=== PATIENT | male | born 1940 | race Caucasian/White ===

== ENCOUNTER 2019-04-15 13:45 | Emergency (ER) | payer MEDICARE ==
[2019-04-15] MEDS ORDERED: Sodium Chloride 0.9% 10 ML Syringe FLUSH PRN (14:29)
[2019-04-15] MEDS ORDERED: Lactated Ringers 1,000 ML IV SCH (14:30)
--- NOTE | 2019-04-15 14:34 | EDM.PDOC ---
ED HPI GENERAL MEDICAL PROBLEM - General Chief Complaint: Head Injury Stated Complaint: FALL VIA NORTH Time Seen by Provider: 04/15/19 14:24 Source of Information: Reports: Patient, RN Notes Reviewed History Limitations: Reports: No Limitations - History of Present Illness INITIAL COMMENTS - FREE TEXT/NARRATIVE: 78-year-old gentleman presents emergency department today following a fall at home with unknown period of time on the floor also believes this happened around 9:30 last night does have a history of alcohol use called the ambulance this afternoon when he could not get up without assistance. 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 - Related Data Allergies Allergy/AdvReac Type Severity Reaction Status Date / Time metronidazole [From Flagyl] Allergy Intermediate Hives Verified 12/17/14 08:50 Metronidazole HCl Allergy Intermediate Hives Verified 12/17/14 08:50 [From Flagyl] Home Meds: Home Meds Albuterol [Proair HFA] 2 inh INH Q4H PRN 10/01/13 [History] Propranolol [Inderal] 40 mg PO Q8H 10/01/13 [History] Albuterol/Ipratropium [DuoNeb 3.0-0.5 MG/3 ML] 1 ampule IH QID 06/06/14 [History ] Loperamide [Imodium] 2 mg PO DAILY PRN 06/06/14 [History] Loratadine [Claritin] 10 mg PO DAILY 06/06/14 [History] Multivitamin [Multi-Vitamin Daily] 1 tab PO DAILY 06/06/14 [History] Theophylline [Theophylline Anhydrous] 300 mg PO BID 06/06/14 [History] amLODIPine Besylate [Amlodipine Besylate] 5 mg PO DAILY 06/06/14 [History] Finasteride 5 mg PO DAILY 04/15/19 [History] Oxybutynin 5 mg PO DAILY 04/15/19 [History] Tamsulosin [Flomax] 0.4 mg PO DAILY 04/15/19 [History] Past Medical History Cardiovascular History: Reports: Hypertension Respiratory History: Reports: COPD Gastrointestinal History: Reports: Jaundice Psychiatric History: Reports: Addiction - Infectious Disease History Infectious Disease History: Reports: Chicken Pox, Measles, Mumps - Past Surgical History GI Surgical History: Reports: Cholecystectomy Social & Family History - Tobacco Use Smoking Status *Q: Current Every Day Smoker Years of Tobacco use: 60 Packs/Tins Daily: 1 - Caffeine Use Caffeine Use: Reports: Coffee - Alcohol Use Days Per Week of Alcohol Use: 7 Number of Drinks Per Day: 6 Total Drinks Per Week: 42 Date of Last Drink: 04/14/19 Time of Last Drink: 20:00 - Recreational Drug Use Recreational Drug Use: No ED ROS GENERAL - Review of Systems Review Of Systems: See Below Constitutional: Reports: Weakness, Fatigue HEENT: Reports: No Symptoms Respiratory: Reports: No Symptoms Cardiovascular: Reports: No Symptoms GI/Abdominal: Reports: No Symptoms : Reports: No Symptoms Musculoskeletal: Reports: No Symptoms Skin: Reports: Wound Neurological: Reports: Headache Psychiatric: Reports: No Symptoms ED EXAM, HEAD INJURY - Physical Exam Exam: See Below Text/Narrative:: General: Male, not in any distress, alert and oriented x3 HEENT: head is large laceration is appreciated above the right eyebrow also multiple lacerations on the scalp normocephalic, eyes pupils equal round reactive to light, sclera clear no conjunctivitis appreciated. Ears tympanic membranes clear and sanford landmarks and light reflex are present bilaterally canals are clear. Nose no septal deviation, nares are clear, no blood present. Mouth mucosa is dry and pink no erythema or exudate noted in soft palate, tongue is midline uvula is midline, dentition is intact. Neck: Supple no thyromegaly no tracheal deviation. Nodes: Cervical nodes subclavicular nodes nontender no palpable lymphadenopathy noted. NO posterior midline C-spine tenderness NO evidence of intoxication GCS > 14 No focal neurological deficit Positive for distracting injury Lungs: clear to auscultation bilaterally with symmetrical respirations, no adventitious noise appreciated. CV: Regular rate and rhythm S1 and S2 appreciated no murmurs rubs or gallops noted. Abdomen: Soft, nontender, no palpable masses or organomegaly appreciated, no distention no guarding bowel sounds are present, Neuro: GCS 15 Skin: Warm and dry, intact Extremities: No lower extremity edema appreciated, pedal pulse is +2. ED LACERATION/WOUND & NYDIA PROC - Laceration/Wound Repair Face Lac/wound length in cm: 6 Appearance: Superficial, Subcutaneous, Muscle, Irregular, Clean Distal NVT: Neuro & Vascular Intact, No Tendon Injury Anesthetic Type: Local Local Anesthesia - Lidocaine (Xylocaine): 1% with EPI Local Anesthetic Volume: 5cc Skin Prep: Saline Saline irrigation (cc's): 120 Exploration/Debridement/Repair: Wound Explored, In a Bloodless Field, Explored to Base Closed with: Sutures Suture Size: 5-0 # of Sutures: 1 Suture Type: Running Suture Size: 5-0 # of Sutures: 4 Repaired with: Vicryl Sterile Dressing Applied: Nurse Tetanus Status Addressed: Yes (2013) Complications: No Hand Lac/wound length in cm: 3 Appearance: Superficial, Clean Distal NVT: Neuro & Vascular Intact, No Tendon Injury Anesthetic Type: Local Local Anesthesia - Lidocaine (Xylocaine): 1% with EPI Local Anesthetic Volume: 1cc Skin Prep: Saline Saline irrigation (cc's): 60 Exploration/Debridement/Repair: Wound Explored, In a Bloodless Field, Explored to Base Closed with: Farzaneh # of Sutures: 5 Sterile Dressing Applied: Nurse Tetanus Status Addressed: Yes Complications: No Course - Vital Signs Last Recorded V/S: Last Vital Signs Temp 92.5 F L 04/15/19 14:08 Pulse 92 04/15/19 18:24 Resp 20 04/15/19 18:24 BP 127/66 04/15/19 18:24 Pulse Ox 92 L 04/15/19 18:24 - Orders/Labs/Meds Orders: Active Orders 24 hr Category Date Time Status Peripheral IV Care [RC] . DIRECTED Care 04/15/19 14:30 Active Vital Signs [RC] Q1H Care 04/15/19 18:26 Ordered ABG [BLOOD GAS ARTERIAL] [BG] Stat Lab 04/15/19 18:19 Ordered CULTURE BLOOD [BC] Urgent Lab 04/15/19 18:26 Ordered CULTURE BLOOD [BC] Urgent Lab 04/15/19 18:26 Ordered DRUG SCREEN, URINE [URCHEM] Stat Lab 04/15/19 14:29 Ordered THEOPHYLLINE [CHEM] Stat Lab 04/15/19 18:22 Ordered UA W/MICROSCOPIC [URIN] Stat Lab 04/15/19 14:29 Ordered Lactated Ringers [Ringers, Lactated] 1,000 ml Med 04/15/19 14:30 Active IV ASDIRECTED Piperacillin/Tazobactam [Zosyn] 4.5 gm Med 04/15/19 18:25 Ordered Sodium Chloride 0.9% [Normal Saline] 100 ml IV ONETIME Sodium Chloride 0.9% [Normal Saline] 1,000 ml Med 04/15/19 16:30 Active IV ASDIRECTED Sodium Chloride 0.9% [Normal Saline] 1,000 ml Med 04/15/19 18:15 Ordered IV ASDIRECTED Sodium Chloride 0.9% [Saline Flush] Med 04/15/19 14:29 Active 10 ml FLUSH ASDIRECTED PRN Blood Culture x2 Reflex Set [OM.PC] Urgent Oth 04/15/19 18:26 Ordered Peripheral IV Insertion Adult [OM.PC] Urgent Oth 04/15/19 14:29 Ordered Medication Orders Lactated Ringer's (Ringers, Lactated) 1,000 mls @ 999 mls/hr IV ASDIRECTED JUDY Last Admin: 04/15/19 16:13 Dose: 999 mls/hr Sodium Chloride (Normal Saline) 1,000 mls @ 999 mls/hr IV ASDIRECTED JUDY Last Admin: 04/15/19 16:32 Dose: 999 mls/hr Sodium Chloride (Normal Saline) 1,000 mls @ 999 mls/hr IV ASDIRECTED JUDY Last Admin: 04/15/19 18:23 Dose: 999 mls/hr Piperacillin Sod/Tazobactam (Sod 4.5 gm/ Sodium Chloride) 100 mls @ 100 mls/hr IV ONETIME ONE Stop: 04/15/19 19:24 Sodium Chloride (Saline Flush) 10 ml FLUSH ASDIRECTED PRN PRN Reason: Keep Vein Open Labs: Laboratory Tests 04/15/19 04/15/19 04/15/19 Range/Units 14:05 14:05 14:05 WBC 15.5 H (4.5-11.0) K/uL RBC 2.24 L (4.30-5.90) M/uL Hgb 8.6 L D (12.0-15.0) g/dL Hct 25.0 L (40.0-54.0) % MCV 112 H (80-98) fL MCH 38 H (27-31) pg MCHC 34 (32-36) % Plt Count 150 (150-400) K/uL Neut % (Auto) 88 H (36-66) % Lymph % (Auto) 5 L (24-44) % [place] % (Auto) 6 (2-6) % Eos % (Auto) 0 L (2-4) % Baso % (Auto) 0 (0-1) % PT 14.4 H (9.5-12.0) sec INR 1.36 H (0.80-1.20) Sodium 129 L (140-148) mmol/L Potassium 5.0 (3.6-5.2) mmol/L Chloride 92 L (100-108) mmol/L Carbon Dioxide 18 L (21-32) mmol/L Anion Gap 24.0 H (5.0-14.0) mmol/L BUN 14 (7-18) mg/dL Creatinine 1.7 H D (0.8-1.3) mg/dL Est Cr Clr Drug Dosing 33.36 mL/min Estimated GFR (MDRD) 39 L (>60) Glucose 82 (74-106) mg/dL Lactic Acid (0.4-2.0) mmol/L Calcium 9.0 (8.5-10.1) mg/dL Total Bilirubin 5.0 H (0.2-1.0) mg/dL AST 674 H D (15-37) U/L ALT 190 H (12-78) U/L Alkaline Phosphatase 325 H (46-116) U/L Creatine Kinase (39-308) U/L Troponin I (0.000-0.056) ng/mL Total Protein 6.5 (6.4-8.2) g/dL Albumin 2.6 L (3.4-5.0) g/dL Globulin 3.9 H (2.3-3.5) g/dL Albumin/Globulin Ratio 0.7 L (1.2-2.2) Ethyl Alcohol mg/dL 04/15/19 04/15/19 04/15/19 Range/Units 14:05 14:05 14:05 WBC (4.5-11.0) K/uL RBC (4.30-5.90) M/uL Hgb (12.0-15.0) g/dL Hct (40.0-54.0) % MCV (80-98) fL MCH (27-31) pg MCHC (32-36) % Plt Count (150-400) K/uL Neut % (Auto) (36-66) % Lymph % (Auto) (24-44) % [place] % (Auto) (2-6) % Eos % (Auto) (2-4) % Baso % (Auto) (0-1) % PT (9.5-12.0) sec INR (0.80-1.20) Sodium (140-148) mmol/L Potassium (3.6-5.2) mmol/L Chloride (100-108) mmol/L Carbon Dioxide (21-32) mmol/L Anion Gap (5.0-14.0) mmol/L BUN (7-18) mg/dL Creatinine (0.8-1.3) mg/dL Est Cr Clr Drug Dosing mL/min Estimated GFR (MDRD) (>60) Glucose (74-106) mg/dL Lactic Acid 11.4 H (0.4-2.0) mmol/L Calcium (8.5-10.1) mg/dL Total Bilirubin (0.2-1.0) mg/dL AST (15-37) U/L ALT (12-78) U/L Alkaline Phosphatase (46-116) U/L Creatine Kinase 1354 H (39-308) U/L Troponin I (0.000-0.056) ng/mL Total Protein (6.4-8.2) g/dL Albumin (3.4-5.0) g/dL Globulin (2.3-3.5) g/dL Albumin/Globulin Ratio (1.2-2.2) Ethyl Alcohol 83 mg/dL 04/15/19 Range/Units 14:05 WBC (4.5-11.0) K/uL RBC (4.30-5.90) M/uL Hgb (12.0-15.0) g/dL Hct (40.0-54.0) % MCV (80-98) fL MCH (27-31) pg MCHC (32-36) % Plt Count (150-400) K/uL Neut % (Auto) (36-66) % Lymph % (Auto) (24-44) % [place] % (Auto) (2-6) % Eos % (Auto) (2-4) % Baso % (Auto) (0-1) % PT (9.5-12.0) sec INR (0.80-1.20) Sodium (140-148) mmol/L Potassium (3.6-5.2) mmol/L Chloride (100-108) mmol/L Carbon Dioxide (21-32) mmol/L Anion Gap (5.0-14.0) mmol/L BUN (7-18) mg/dL Creatinine (0.8-1.3) mg/dL Est Cr Clr Drug Dosing mL/min Estimated GFR (MDRD) (>60) Glucose (74-106) mg/dL Lactic Acid (0.4-2.0) mmol/L Calcium (8.5-10.1) mg/dL Total Bilirubin (0.2-1.0) mg/dL AST (15-37) U/L ALT (12-78) U/L Alkaline Phosphatase (46-116) U/L Creatine Kinase (39-308) U/L Troponin I < 0.017 (0.000-0.056) ng/mL Total Protein (6.4-8.2) g/dL Albumin (3.4-5.0) g/dL Globulin (2.3-3.5) g/dL Albumin/Globulin Ratio (1.2-2.2) Ethyl Alcohol mg/dL Meds: Medications Generic Name Dose Route Start Last Admin Trade Name Freq PRN Reason Stop Dose Admin Lactated Ringer's 1,000 mls @ 999 mls/hr 04/15/19 14:30 04/15/19 16:13 Ringers, Lactated IV 999 mls/hr ASDIRECTED JUDY Administration Sodium Chloride 1,000 mls @ 999 mls/hr 04/15/19 16:30 04/15/19 16:32 Normal Saline IV 999 mls/hr ASDIRECTED JUDY Administration Sodium Chloride 1,000 mls @ 999 mls/hr 04/15/19 18:15 04/15/19 18:23 Normal Saline IV 999 mls/hr ASDIRECTED JUDY Administration Piperacillin Sod/Tazobactam 100 mls @ 100 mls/hr 04/15/19 18:25 Sod 4.5 gm/ Sodium Chloride IV 04/15/19 19:24 ONETIME ONE Sodium Chloride 10 ml 04/15/19 14:29 Saline Flush FLUSH ASDIRECTED PRN Keep Vein Open Discontinued Medications Generic Name Dose Route Start Last Admin Trade Name Freq PRN Reason Stop Dose Admin Bacitracin 2 dose 04/15/19 14:42 04/15/19 16:33 Bacitracin Oint 1 Gm TOP 04/15/19 14:43 2 dose ONETIME ONE Administration Lidocaine/Epinephrine 20 ml 04/15/19 14:42 04/15/19 18:24 Xylocaine 1% With Epinephrine 1:100,000 SUBCUT 04/15/19 14:43 20 ml NOW STA Administration Departure - Departure Time of Disposition: 19:07 Disposition: DC/Tfer to Acute Hospital 02 Condition: Poor Clinical Impression: Traumatic rhabdomyolysis Qualifiers: Encounter type: initial encounter Qualified Code(s): T79.6XXA - Traumatic ischemia of muscle, initial encounter Acute renal failure Qualifiers: Acute renal failure type: unspecified Qualified Code(s): N17.9 - Acute kidney failure, unspecified - Discharge Information Referrals: Robert Olsen MD [Primary Care Provider] - Forms: ED Department Discharge - My Orders Last 24 Hours: My Active Orders 04/15/19 14:29 DRUG SCREEN, URINE [URCHEM] Stat UA W/MICROSCOPIC [URIN] Stat Sodium Chloride 0.9% [Saline Flush] 10 ml FLUSH ASDIRECTED PRN Peripheral IV Insertion Adult [OM.PC] Urgent 04/15/19 14:30 Peripheral IV Care [RC] . DIRECTED Lactated Ringers [Ringers, Lactated] 1,000 ml IV ASDIRECTED 04/15/19 16:30 Sodium Chloride 0.9% [Normal Saline] 1,000 ml IV ASDIRECTED 04/15/19 18:15 Sodium Chloride 0.9% [Normal Saline] 1,000 ml IV ASDIRECTED 04/15/19 18:19 ABG [BLOOD GAS ARTERIAL] [BG] Stat 04/15/19 18:22 THEOPHYLLINE [CHEM] Stat 04/15/19 18:25 Piperacillin/Tazobactam [Zosyn] 4.5 gm Sodium Chloride 0.9% [Normal Saline] 100 ml IV ONETIME 04/15/19 18:26 Vital Signs [RC] Q1H CULTURE BLOOD [BC] Urgent CULTURE BLOOD [BC] Urgent Blood Culture x2 Reflex Set [OM.PC] Urgent - Assessment/Plan Last 24 Hours: My Active Orders 04/15/19 14:29 DRUG SCREEN, URINE [URCHEM] Stat UA W/MICROSCOPIC [URIN] Stat Sodium Chloride 0.9% [Saline Flush] 10 ml FLUSH ASDIRECTED PRN Peripheral IV Insertion Adult [OM.PC] Urgent 04/15/19 14:30 Peripheral IV Care [RC] . DIRECTED Lactated Ringers [Ringers, Lactated] 1,000 ml IV ASDIRECTED 04/15/19 16:30 Sodium Chloride 0.9% [Normal Saline] 1,000 ml IV ASDIRECTED 04/15/19 18:15 Sodium Chloride 0.9% [Normal Saline] 1,000 ml IV ASDIRECTED 04/15/19 18:19 ABG [BLOOD GAS ARTERIAL] [BG] Stat 04/15/19 18:22 THEOPHYLLINE [CHEM] Stat 04/15/19 18:25 Piperacillin/Tazobactam [Zosyn] 4.5 gm Sodium Chloride 0.9% [Normal Saline] 100 ml IV ONETIME 04/15/19 18:26 Vital Signs [RC] Q1H CULTURE BLOOD [BC] Urgent CULTURE BLOOD [BC] Urgent Blood Culture x2 Reflex Set [OM.PC] Urgent Plan: Assessment Acuity = acute Site and laterality = severe rhabdomyolysis with acute renal failure stage G IIIB be complicated in a patient with known history of alcohol abuse and dependence chronic liver failure with jaundice with a 6 cm laceration to the face above the right eyebrow and a 3 cm laceration to the scalp Etiology = secondary to a fall at home unknown down time Manifestations = hypothermic, hypoxic, acute renal failure, Location of injury = Home Lab values = WBC elevated at 15.5 consistent with leukocytosis, hemoglobin low at 8.6 consistent with Macker chromic anemia INR is elevated at 1.36 probably secondary to liver failure sodium low at 129 consistent hyponatremia creatinine elevated 1.7 consistent with acute renal failure stage G IIIB lactic acid 11.8 consistent with lactic acidosis total bilirubin elevated 5.0 consistent hyperbilirubinemia AST elevated 674 AOT elevated 190 consistent with elevated liver enzymes CK is 1354 consistent with rhabdomyolysis troponin was negative albumin low at 2.6 consistent with hypoalbuminemia alcohol was 83 Plan Thus far he has received 3 L of fluids with no urine output, antibiotics of Zosyn has been initiated blood cultures were drawn theophylline level and ABG are pending. Called discussed case with Dr. Knowles at [facility] kindly accepted the patient in transfer at 18:30 will be transported via EMS ground This note was dictated using dragon voice recognition software please call with any questions on syntax or grammar.
[2019-04-15] MEDS ORDERED: Lidocaine 1% with EPINEPHrine 1:100,000 50 ML MDV SUBCUT STA (14:42)
[2019-04-15] MEDS ORDERED: Bacitracin Oint 1 GM U/D Packet TOP ONE (14:42)
--- NOTE | 2019-04-15 15:33 | CRLCT ---
INDICATION: 78-year-old male. Fell. Head trauma. TECHNIQUE: CT images were acquired from foramen magnum to vertex without. FINDINGS: The ventricles and subarachnoid spaces are prominent due to the generalized atrophy. No hydrocephalus. No acute hemorrhage no subdural fluid collections. No mass effect. Small vessel ischemic changes within the supratentorial white matter. Preservation of sanford-white interface without evidence of acute cortical based infarction. No posterior fossa hemorrhage or mass effect. Bony calvarium unremarkable. IMPRESSION: No acute intracranial hemorrhage or mass effect. No skull fracture. Cerebral and cerebellar atrophy. Mild small vessel ischemic changes. Please note that all CT scans at this facility use dose modulation, iterative reconstruction, and/or weight-based dosing when appropriate to reduce radiation dose to as low as reasonably achievable. Dictated by Vickey Escamilla MD @ Apr 15 2019 3:23PM Signed by Dr. Vickey Escamilla @ Apr 15 2019 3:30PM
--- NOTE | 2019-04-15 15:35 | CRLCT ---
INDICATION: 78-year-old male. Trauma. TECHNIQUE: CT images were acquired through the cervical spine. Axial, sagittal and coronal reformatted images are reviewed. FINDINGS: Alignment of the cervical spine is within normal limits. There is multilevel cervical spondylosis. Degenerative disc space narrowing with marginal osteophytes noted between C3 and T2. No evidence of acute cervical spine fracture. Incidental calcified pleural disease at the right lung apex. IMPRESSION: No evidence of acute cervical spine fracture or traumatic malalignment. Please note that all CT scans at this facility use dose modulation, iterative reconstruction, and/or weight-based dosing when appropriate to reduce radiation dose to as low as reasonably achievable. Dictated by Vickey Escamilla MD @ Apr 15 2019 3:23PM Signed by Dr. Vickey Escamilla @ Apr 15 2019 3:34PM
--- NOTE | 2019-04-15 15:47 | CRLCR ---
INDICATION: Hypoxia. TECHNIQUE: Chest 1 view COMPARISON: CT chest 11/18/2018. FINDINGS: No focal consolidation, pleural effusion, or pneumothorax. Calcified pleural plaques bilaterally. Normal heart size and pulmonary vascularity. Aortic calcification. IMPRESSION: 1. No acute findings. 2. Calcified pleural plaques bilaterally. Dictated by Yadira Villagran MD @ Apr 15 2019 3:43PM Signed by Dr. Yadira Villagran @ Apr 15 2019 3:46PM
[2019-04-15] MEDS: Sodium Chloride 0.9% 1,000 ML IV SCH ×2 (16:32→19:17)
[2019-04-15] MEDS ORDERED: Sodium Chloride 0.9% 1,000 ML IV SCH ×2 (18:15→19:15)
[2019-04-15] MEDS ORDERED: Piperacillin/Tazobactam 4.5 GM in Sodium Chloride 0.9% 100 ML IV ONE (18:25)
[2019-04-15 19:12] VITALS: BP 123/58; PULSE 93
== END 2019-04-15 20:11 ==
LOC: JP.ED 13:45
DX: T79.6XXA Traumatic ischemia of muscle, initial encounter (principal); S01.81XA Laceration without foreign body of other part of head, initial encounter; S01.01XA Laceration without foreign body of scalp, initial encounter; N17.9 Acute kidney failure, unspecified; I10 Essential (primary) hypertension; J44.9 Chronic obstructive pulmonary disease, unspecified; F17.210 Nicotine dependence, cigarettes, uncomplicated; Z88.1 Allergy status to other antibiotic agents; Z79.899 Other long term (current) drug therapy; W19.XXXA Unspecified fall, initial encounter
CPT/HCPCS: 12002; 12014; 36415; 36600; 70450; 71045; 72125; 80053; 80198; 82550; 82803; 83605; 84484; 85025; 85610; 87040; 96361; 96365; 99285; G0480; J2543; J7030; J7120

== ENCOUNTER 2020-01-13 17:08 | Emergency (ER) | payer MEDICARE ==
[2020-01-13] MEDS ORDERED: Ondansetron 4 MG/2 ML SDV IVPUSH ONE (18:13)
[2020-01-13] MEDS ORDERED: HYDROmorphone 0.5 MG/0.5 ML Syringe IVPUSH ONE ×2 (18:14→19:16)
[2020-01-13] MEDS ORDERED: Sodium Chloride 0.9% 1,000 ML IV SCH ×2 (18:15→19:00)
--- NOTE | 2020-01-13 18:17 | EDM.PDOC ---
ED HPI GENERAL MEDICAL PROBLEM - General Chief Complaint: Abdominal Pain Stated Complaint: STOMACH CRAMPING Time Seen by Provider: 01/13/20 18:14 Source of Information: Reports: Patient History Limitations: Reports: No Limitations - History of Present Illness INITIAL COMMENTS - FREE TEXT/NARRATIVE: pt arrived stating that he started with diarrhea about 3 AM this morning and he developed severe cramping in his lower abdoman. he does not think he had a fever. He did not note any bloody or dark looking stools. Onset: Sudden, Other ( started at 3 AM. ) Duration: Hour(s): Location: Reports: Abdomen Associated Symptoms: Reports: No Other Symptoms Lower Abdominal Pain Score (Numeric/FACES): 8 - Related Data Allergies Allergy/AdvReac Type Severity Reaction Status Date / Time metronidazole [From Flagyl] Allergy Intermediate Hives Verified 01/13/20 17:26 Metronidazole HCl Allergy Intermediate Hives Verified 01/13/20 17:26 [From Flagyl] Home Meds: Home Meds Albuterol [Proair HFA] 2 inh INH Q4H PRN 10/01/13 [History] Propranolol [Inderal] 20 mg PO BID 10/01/13 [History] Multivitamin [Multi-Vitamin Daily] 1 tab PO DAILY 06/06/14 [History] Tamsulosin [Flomax] 0.4 mg PO DAILY 04/15/19 [History] Famotidine 40 mg PO BEDTIME 01/13/20 [History] Finasteride 5 mg PO DAILY 01/13/20 [History] Furosemide [Lasix] 20 mg PO DAILY 01/13/20 [History] Magnesium Oxide 400 mg PO DAILY 01/13/20 [History] Mometasone Furoate 1 dose TOP ASDIRECTED 01/13/20 [History] Nystatin 1 dose TOP TID 01/13/20 [History] Pantoprazole Sodium [Protonix] 40 mg PO DAILY 01/13/20 [History] Theophylline [Brian-24] 300 mg PO DAILY 01/13/20 [History] Thiamine [Vitamin B-1] 1 tab PO DAILY 01/13/20 [History] Tiotropium [Spiriva HandiHaler] 1 cap INH DAILY 01/13/20 [History] Past Medical History HEENT History: Reports: Cataract, Impaired Vision Cardiovascular History: Reports: High Cholesterol, Hypertension Respiratory History: Reports: COPD Gastrointestinal History: Reports: Jaundice Genitourinary History: Reports: BPH Psychiatric History: Reports: Addiction - Infectious Disease History Infectious Disease History: Reports: Chicken Pox, Measles, Mumps - Past Surgical History HEENT Surgical History: Reports: Cataract Surgery GI Surgical History: Reports: Cholecystectomy Social & Family History - Tobacco Use Smoking Status *Q: Heavy Tobacco Smoker Years of Tobacco use: 60 Packs/Tins Daily: 1 - Caffeine Use Caffeine Use: Reports: None - Recreational Drug Use Recreational Drug Use: No ED ROS GENERAL - Review of Systems Review Of Systems: See Below Constitutional: Reports: Weakness, Other (pt did have many stools. ) HEENT: Reports: No Symptoms Respiratory: Reports: No Symptoms Cardiovascular: Reports: No Symptoms Endocrine: Reports: No Symptoms GI/Abdominal: Reports: Abdominal Pain, Diarrhea : Reports: No Symptoms Musculoskeletal: Reports: No Symptoms Skin: Reports: No Symptoms Neurological: Reports: No Symptoms Psychiatric: Reports: Anxiety ED EXAM, GI/ABD - Physical Exam Exam: See Below Text/Narrative:: pt arrived with marked diarrhea and abdomanal pain. He is rating his pain at a 8. Exam Limited By: No Limitations General Appearance: Alert, Anxious, Moderate Distress Ears: Normal TMs Nose: Normal Inspection Throat/Mouth: Normal Inspection Head: Atraumatic Neck: Normal Inspection Respiratory/Chest: No Respiratory Distress Cardiovascular: Regular Rate, Rhythm GI/Abdominal Exam: Other (pt is tender accross the lower abdoman. ) (Male) Exam: Deferred Rectal (Males) Exam: Deferred Back Exam: Normal Inspection Extremities: Normal Inspection Neurological: Alert, Oriented, Normal Cognition Course - Vital Signs Last Recorded V/S: Last Vital Signs Temp 35.4 C L 01/13/20 17:25 Pulse 89 01/13/20 19:58 Resp 14 01/13/20 17:50 BP 161/89 H 01/13/20 19:58 Pulse Ox 96 01/13/20 19:58 - Orders/Labs/Meds Orders: Active Orders 24 hr Category Date Time Status Iopamidol [Isovue-300 (61%)] Med 01/13/20 19:15 Active 100 ml IV . DIRECTED Sodium Chloride 0.9% [Normal Saline] 1,000 ml Med 01/13/20 18:15 Active IV ASDIRECTED Sodium Chloride 0.9% [Normal Saline] 1,000 ml Med 01/13/20 19:00 Active IV ASDIRECTED Sodium Chloride 0.9% [Normal Saline] 80 ml Med 01/13/20 19:15 Active IV ASDIRECTED Sodium Chloride 0.9% [Saline Flush] Med 01/13/20 19:06 Active 10 ml FLUSH ASDIRECTED PRN Medication Orders Sodium Chloride (Normal Saline) 1,000 mls @ 999 mls/hr IV ASDIRECTED JUDY Last Admin: 01/13/20 18:26 Dose: 999 mls/hr Sodium Chloride (Normal Saline) 1,000 mls @ 999 mls/hr IV ASDIRECTED JUDY Last Admin: 01/13/20 19:49 Dose: 999 mls/hr Sodium Chloride (Normal Saline) 80 mls @ 3 mls/sec IV ASDIRECTED JUDY Last Admin: 01/13/20 19:24 Dose: 3 mls/sec Iopamidol (Isovue-300 (61%)) 100 ml IV . DIRECTED JUDY Last Admin: 01/13/20 19:24 Dose: 100 ml Sodium Chloride (Saline Flush) 10 ml FLUSH ASDIRECTED PRN PRN Reason: Keep Vein Open Last Admin: 01/13/20 19:23 Dose: 10 ml Labs: Laboratory Tests 01/13/20 01/13/20 01/13/20 Range/Units 18:10 18:10 18:12 WBC 9.1 (4.5-11.0) K/uL RBC 4.03 L (4.30-5.90) M/uL Hgb 13.6 D (12.0-15.0) g/dL Hct 40.8 (40.0-54.0) % MCV 101 H (80-98) fL MCH 34 H (27-31) pg MCHC 33 (32-36) % Plt Count 160 (150-400) K/uL Neut % (Auto) 83 H (36-66) % Lymph % (Auto) 9 L (24-44) % [place] % (Auto) 8 H (2-6) % Eos % (Auto) 0 L (2-4) % Baso % (Auto) 0 (0-1) % Sodium 137 L (140-148) mmol/L Potassium 4.1 (3.6-5.2) mmol/L Chloride 100 (100-108) mmol/L Carbon Dioxide 31 (21-32) mmol/L Anion Gap 10.1 (5.0-14.0) mmol/L BUN 21 H (7-18) mg/dL Creatinine 1.3 (0.8-1.3) mg/dL Est Cr Clr Drug Dosing 46.04 mL/min Estimated GFR (MDRD) 54 L (>60) Glucose 155 H (74-106) mg/dL Calcium 9.1 (8.5-10.1) mg/dL Total Bilirubin 1.0 D (0.2-1.0) mg/dL AST 35 D (15-37) U/L ALT 27 D (12-78) U/L Alkaline Phosphatase 216 H (46-116) U/L C-Reactive Protein 4.21 H (0.0-0.3) mg/dL Total Protein 7.9 (6.4-8.2) g/dL Albumin 2.9 L (3.4-5.0) g/dL Globulin 5.0 H (2.3-3.5) g/dL Albumin/Globulin Ratio 0.6 L (1.2-2.2) Urine Color Yellow (YELLOW) Urine Appearance Slightly cloudy A (CLEAR) Urine pH 5.5 (5.0-8.0) Ur Specific [place] 1.025 (1.008-1.030) Urine Protein Negative (NEGATIVE) mg/dL Urine Glucose (UA) Negative (NEGATIVE) mg/dL Urine Ketones Negative (NEGATIVE) mg/dL Urine Occult Blood Trace-lysed H (NEGATIVE) Urine Nitrite Negative (NEGATIVE) Urine Bilirubin Negative (NEGATIVE) Urine Urobilinogen 0.2 (0.2-1.0) EU/dL Ur Leukocyte Esterase Negative (NEGATIVE) Urine RBC 0-5 (0-5) Urine WBC 0-5 (0-5) Ur Epithelial Cells Rare Amorphous Sediment Not seen Urine Bacteria Rare Urine Mucus Moderate Urine Other Meds: Medications Generic Name Dose Route Start Last Admin Trade Name Freq PRN Reason Stop Dose Admin Sodium Chloride 1,000 mls @ 999 mls/hr 01/13/20 18:15 01/13/20 18:26 Normal Saline IV 999 mls/hr ASDIRECTED JUDY Administration Sodium Chloride 1,000 mls @ 999 mls/hr 01/13/20 19:00 01/13/20 19:49 Normal Saline IV 999 mls/hr ASDIRECTED JUDY Administration Sodium Chloride 80 mls @ 3 mls/sec 01/13/20 19:15 01/13/20 19:24 Normal Saline IV 3 mls/sec ASDIRECTED JUDY Administration Iopamidol 100 ml 01/13/20 19:15 01/13/20 19:24 Isovue-300 (61%) IV 100 ml . DIRECTED JUDY Administration Sodium Chloride 10 ml 01/13/20 19:06 01/13/20 19:23 Saline Flush FLUSH 10 ml ASDIRECTED PRN Administration Keep Vein Open Discontinued Medications Generic Name Dose Route Start Last Admin Trade Name Freq PRN Reason Stop Dose Admin Hydromorphone HCl 0.5 mg 01/13/20 18:14 01/13/20 18:30 Dilaudid IVPUSH 01/13/20 18:15 0.5 mg ONETIME ONE Administration Hydromorphone HCl 0.5 mg 01/13/20 19:16 01/13/20 19:54 Dilaudid IVPUSH 01/13/20 19:17 0.5 mg ONETIME ONE Administration Ondansetron HCl 4 mg 01/13/20 18:13 01/13/20 18:29 Zofran IVPUSH 01/13/20 18:14 4 mg ONETIME ONE Administration - Re-Assessments/Exams Free Text/Narrative Re-Assessment/Exam: 01/13/20 19:15 pt has a elevated crp and is continuing to have pain. He will have a cat scan of the abdoman with contrast. 01/13/20 19:17 01/13/20 20:06 The cat scan showed some evidence of thickeniong or thr lower sigmoid and rectum. There was no mass present. The rest of the cat scan shows cirrohosids which he knew about and diverticulosis. His pain is alot better. He has not had any stools since he has been here. he has been hydrated with 2 liters of fluid. Departure - Departure Time of Disposition: 20:09 Disposition: Home, Self-Care 01 Condition: Fair Clinical Impression: Gastroenteritis and colitis, viral - Discharge Information Referrals: Robert Olsen MD [Primary Care Provider] - Forms: ED Department Discharge Care Plan Goals: clear liquids, -- for the nex 24 hours. imodium 1-2 tabs after each loose stool , push fluids, advance diet to bland foods, norco 5/325 q6h prn for pain # 8 If persistent symptoms pt may need a colonoscopy, appt with Dr Olsen in 4 days. Sepsis Event Note - Evaluation Sepsis Screening Result: Possible Sepsis Risk - Focused Exam Vital Signs: Vital Signs Temp Pulse Resp BP Pulse Ox 01/13/20 19:58 89 161/89 H 96 01/13/20 18:21 85 182/92 H 98 01/13/20 17:50 82 14 175/91 H 92 L 01/13/20 17:25 35.4 C L 91 16 196/100 H 99 01/13/20 17:23 35.4 C L 91 16 196/100 H 99 Date Exam was Performed: 01/13/20 Time Exam was Performed: 20:11 - My Orders Last 24 Hours: My Active Orders 01/13/20 18:15 Sodium Chloride 0.9% [Normal Saline] 1,000 ml IV ASDIRECTED 01/13/20 19:00 Sodium Chloride 0.9% [Normal Saline] 1,000 ml IV ASDIRECTED 01/13/20 19:06 Sodium Chloride 0.9% [Saline Flush] 10 ml FLUSH ASDIRECTED PRN 01/13/20 19:15 Iopamidol [Isovue-300 (61%)] 100 ml IV . DIRECTED Sodium Chloride 0.9% [Normal Saline] 80 ml IV ASDIRECTED - Assessment/Plan Last 24 Hours: My Active Orders 01/13/20 18:15 Sodium Chloride 0.9% [Normal Saline] 1,000 ml IV ASDIRECTED 01/13/20 19:00 Sodium Chloride 0.9% [Normal Saline] 1,000 ml IV ASDIRECTED 01/13/20 19:06 Sodium Chloride 0.9% [Saline Flush] 10 ml FLUSH ASDIRECTED PRN 01/13/20 19:15 Iopamidol [Isovue-300 (61%)] 100 ml IV . DIRECTED Sodium Chloride 0.9% [Normal Saline] 80 ml IV ASDIRECTED
[2020-01-13] MEDS ORDERED: Sodium Chloride 0.9% 10 ML Syringe FLUSH PRN (19:06)
[2020-01-13] MEDS ORDERED: Sodium Chloride 0.9% 80 ML IV SCH (19:15)
[2020-01-13] MEDS ORDERED: Iopamidol 612 MG/ML 100 ML Bottle IV SCH (19:15)
--- NOTE | 2020-01-13 19:57 | CRLCT ---
INDICATION: Lower abdominal pain. TECHNIQUE: CT abdomen and pelvis acquired with 100 cc Isovue-300 IV contrast. COMPARISON: November 08, 2016. FINDINGS: Lower chest: Again demonstrated are multiple calcified pleural plaques. Liver: Cirrhotic morphology of the liver has worsened since the prior exam. No focal liver lesion. Gallbladder and bile ducts: Status post cholecystectomy. Pancreas: Punctate calcifications in the uncinate process are unchanged. Otherwise unremarkable pancreas. Spleen: Unremarkable. Normal in size. No masses. Adrenal glands: Small left adrenal nodule is stable and consistent with a benign adenoma. Kidneys: Unremarkable. No masses, stones, or hydronephrosis. GI tract: There is wall thickening of the distal sigmoid colon and rectum. There is sigmoid diverticulosis. Remainder of the GI tract is within normal limits in caliber and appearance. Normal appendix. Vasculature: Unremarkable. Mesenteric arteries are patent. Lymph nodes: No lymphadenopathy. Omentum/Peritoneum/Abdominal Wall: Moderate amount of ascites. No free air. No sign of mass. Pelvis: Unremarkable. Bones: Unremarkable for age. IMPRESSION: 1. Acute proctocolitis suspected. 2. Liver cirrhosis with evidence of portal venous hypertension evidence by a moderate amount of ascites. 3. No other acute findings or significant changes from the prior exam. Dictated by Jamal Butler MD @ 01/13/2020 7:54:49 PM Please note that all CT scans at this facility use dose modulation, iterative reconstruction, and/or weight-based dosing when appropriate to reduce radiation dose to as low as reasonably achievable. Dictated by: Jamal Butler MD @ 01/13/2020 19:55:24 (Electronically Signed)
[2020-01-13 19:59] VITALS: BP 161/89; PULSE 89
[2020-01-13] MEDS ORDERED: Acetaminophen/oxyCODONE 325-5 MG Tab PO ONE (20:53)
== END 2020-01-13 21:10 | disposition home or self-care (01) ==
LOC: JP.ED 17:08
DX: A08.4 Viral intestinal infection, unspecified (principal); I10 Essential (primary) hypertension; J44.9 Chronic obstructive pulmonary disease, unspecified; F17.210 Nicotine dependence, cigarettes, uncomplicated; Z79.899 Other long term (current) drug therapy; Z88.1 Allergy status to other antibiotic agents
CPT/HCPCS: 36415; 74177; 80053; 81001; 85025; 86140; 96361; 96374; 96375; 96376; 99284; J1170; J2405; J7030; J7050; Q9967

== ENCOUNTER 2020-01-30 08:21 | Observation (INO) | payer MEDICARE ==
[2020-01-30] MEDS: Sodium Chloride 0.9% 1,000 ML IV SCH ×2 (09:12→13:18)
[2020-01-30] MEDS ORDERED: fentaNYL 100 MCG/2 ML SDV ONE (09:54)
[2020-01-30] MEDS ORDERED: Midazolam 1 MG/ML 2 ML SDV ONE (09:55)
[2020-01-30] MEDS ORDERED: Propofol 200 MG/20 ML SDV ONE (09:55)
[2020-01-30] MEDS ORDERED: Benzocaine/Cetylpyridinium/Menthol Lozenge MUCMEM PRN (10:19)
[2020-01-30] MEDS ORDERED: Acetaminophen 325 MG Tab PO PRN (10:19)
--- NOTE | 2020-01-30 11:59 | CT ---
Chest Abdomen Pelvis wo Cont CLINICAL HISTORY: Recent paracentesis TECHNIQUE: Transverse scans were obtained from the thoracic inlet to the lung bases without contrast. Auto dosage reduction and iterative reconstruction techniques employed. COMPARISONS: Abdomen 01/13/2020 FINDINGS: There is a large plaque with calcification in the right apex all areas of calcified pleural plaque diffusely and bilaterally.. Lungs are hyperaerated. There is some patchy pleural parenchymal scarring. There is some minimal patchy fibrosis with subpleural honeycombing in the bases. There is bronchial thickening. No pulmonary mass or infiltrate is seen. There are a few small benign-appearing lymph nodes in the mediastinum. No mass is identified. There are no pleural effusions. There are atherosclerotic changes in the aorta. IMPRESSION: Calcified pleural plaque with some patchy fibrosis consistent with previous suspicious exposure. No pulmonary mass or infiltrate Abdomen Pelvis wo Cont COMPARISON: 01/13/2020. TECHNIQUE: Transverse scans were obtained from the base of the lungs to the pubic symphysis following oral contrast and IV infusion of contrast.Auto dosage reduction and iterative reconstructiontechniques employed. FINDINGS: There is some free intraperitoneal air on the nondependent surface. There is moderate abdominal pelvic ascites similar to the May study. Density of ascitic fluid is unchanged. The liver is small and heterogeneous.. The gallbladder has been removed. The spleen is borderline enlarged. The pancreas shows no mass or inflammatory change. There is a 9 x 12 mm low-attenuation nodule in the left adrenal gland. Density measurement suggests a benign adenoma. The kidneys are free of stones or hydronephrosis. There is a calcification in the midpole of the right kidney felt to be vascular.. The ureters have a normal course and contour. The aorta shows diffuse atheromatous changes without aneurysm. There is no suspicious retroperitoneal adenopathy. Previously seen colonic thickening has resolved. There is mild generalized gaseous distention of the colon and small bowel in a nonspecific pattern. There is some fluid in the right colon. IMPRESSION: There are scattered small collections of free intraperitoneal air in the nondependent surface of the abdomen Moderate ascites similar to the May study Changes of cirrhosis Rectosigmoid thickening has resolved Dr. Manning was notified of these findings via phone at the time of this dictation at 11:50 AM
[2020-01-30] MEDS: Acetaminophen/HYDROcodone 325-5 MG Tab PO PRN ×2 (12:35→19:29)
[2020-01-30] MEDS: Piperacillin/Tazobactam/Dext 3.375 GM in Premix Bag 1 BAG IV SCH ×3 (13:17→23:46)
--- NOTE | 2020-01-30 16:51 | OR ---
DATE OF PROCEDURE: 01/30/2020 SURGEON: Chadd Manning MD PROCEDURES: 1. Paracentesis. 2. Colonoscopy. COMPLICATIONS: None. ARCHITECTURAL DRAFTSMAN: None. ANESTHESIA: MAC. PREOPERATIVE DIAGNOSIS: Alcoholic cirrhosis and requirement for colonoscopy for history of polyps and alcoholic cirrhosis/anemia. POSTOPERATIVE DIAGNOSIS: Alcoholic cirrhosis and requirement for colonoscopy for history of polyps and alcoholic cirrhosis/anemia. PROCEDURE IN DETAIL: The patient was placed in supine position. The mechanical technician had previously marked the area fluid. Skin was anesthetized after being prepped and draped. A single last was created in the skin. The needle was then introduced and advanced. Approximately 200 mL of straw-colored fluid was able to be drawn back after the sheath was introduced and the needle was withdrawn. There was a small amount of air noted during this process, concerning for possible perforation of the colon; therefore, the procedure was terminated. The colonoscopy was then performed next. The scope was introduced and advanced atraumatically to the ileocecal valve. In the area of the ascending colon, there was a small amount of blood; however, no definitive tear, hole, or abnormality could be noted. The pressure was dropped intraluminally and no bleeding could be produced. The scope was brought back through the remainder of the colon. There was a polyp in the ascending colon, which was completely removed using cold biopsy forceps and a second polyp in the transverse colon, which was completely removed using the hot snare wire device. Scope was retroflexed. No abnormalities noted. The patient tolerated the procedure well. Chadd Manning MD /[id number]
[2020-01-31] MEDS: Sodium Chloride 0.9% 1,000 ML IV SCH (05:28)
[2020-01-31] MEDS: Piperacillin/Tazobactam/Dext 3.375 GM in Premix Bag 1 BAG IV SCH ×2 (05:29→12:22)
[2020-01-31] MEDS ORDERED: Iohexol 300 MG/ML 30 ML Bottle PO ONE (07:43)
[2020-01-31] MEDS ORDERED: Iopamidol 612 MG/ML 100 ML Bottle IV ONE (10:00)
[2020-01-31 11:36] VITALS: BP 128/73; PULSE 79
--- NOTE | 2020-01-31 11:42 | CRLCT ---
Paracentesis yesterday surgeon believes he may have nicked the colon Followup recent paracentesis technique contrast-enhanced CT abdomen pelvis 96 mL Isovue-300. COMPARISON: CT abdomen pelvis 01/30/2020 Findings The heart size is normal. There is no pericardial effusion. Subpleural reticular opacities could represent fibrosis. Calcified pleural plaques. Nodular contour to the liver. No suspicious liver mass. Spleen is not enlarged pancreas right adrenal glands unremarkable stable left 1.2 cm nodule normal caliber abdominal aorta without sclerosis. Diverticulosis. Normal appendix. Small amount of pneumoperitoneum which is decreased from the most recent study. Small amount of free intraperitoneal air which is decreased from the prior study. There is moderate amount of abdominal ascites which appears stable and predominantly low-density. There is increased density within the fluid along the right anterior perirenal space see series 2 image 66 to 78. This may represent hemorrhage and is decreased from prior study. No active hemorrhage seen. There is no portal venous gas. Small bubbly lucencies within the cecum may represent pneumatosis. Normal appendix. Urinary bladder is unremarkable. Prostate gland is not enlarged. Impression : 1. Moderate amount of ascites predominantly low density not significantly changed from the prior study. 2. Small amount of intraperitoneal air which is decreased from the prior study. 3. Fluid along the right anterior perirenal space is of increased density which may represent hemorrhage however the amount of dense fluid is decreased from the prior study. 4. Small amount of probable pneumatosis in the cecum which is of uncertain etiology. No portal venous gas. Please note that all CT scans at this facility use dose modulation, iterative reconstruction, and/or weight-based dosing when appropriate to reduce radiation dose to as low as reasonably achievable. Dictated by Ina Ramirez MD @ Jan 31 2020 11:06AM Signed by Dr. Ina Ramirez @ Jan 31 2020 11:40AM
--- NOTE | 2020-01-31 18:18 | PN ---
DATE OF SERVICE: 01/31/2020 SUBJECTIVE: The patient continues to do well and he remains completely asymptomatic overnight. Passing gas. The patient is hungry. No nausea, vomiting, shortness of breath, or chest pain. OBJECTIVE: VITAL SIGNS: Stable. He is afebrile. EXTREMITIES: Nondistended. ASSESSMENT AND PLAN: Status post paracentesis and colonoscopy with concern of possible bowel perforation. No evidence of that at this time. Repeat CT scan this a.m. is pending. Chadd Manning MD /[id number]
--- NOTE | 2020-02-13 11:18 | DISCH ---
DISCHARGE DIAGNOSES: Status post colonoscopy and paracentesis. SUMMARY OF HOSPITAL COURSE: This is a pleasant 79-year-old male who underwent a paracentesis. During this, a mild amount of fluid returned. However, he had an intentional colonoscopy after this and some blood was noted in the cecum concerning for a possible iatrogenic perforation of the colon. The patient underwent a CT scan immediately and then postoperatively day #1, no abnormalities were noted. No free air. No areas of concern. He did not develop a fever. He remained hemodynamically stable and was subsequently discharged.
== END 2020-01-31 13:02 | disposition home or self-care (01) ==
LOC: JP.ACU 08:21 → JP.MS 10:19
PROVIDERS: ADMIT Surgery; ATTEND Surgery
DX: D12.3 Benign neoplasm of transverse colon (principal); D12.2 Benign neoplasm of ascending colon; K70.31 Alcoholic cirrhosis of liver with ascites; D64.9 Anemia, unspecified; J44.9 Chronic obstructive pulmonary disease, unspecified; F17.200 Nicotine dependence, unspecified, uncomplicated; K21.9 Gastro-esophageal reflux disease without esophagitis; I10 Essential (primary) hypertension; Z88.1 Allergy status to other antibiotic agents; Z86.010 Personal history of colon polyps
CPT/HCPCS: 36415; 45385; 49083; 71250; 74176; 74177; 80053; 85027; 88305; 96361; 96365; 96366; 96376; A9270; G0378; J2250; J2543; J2704; J3010; J7030; J7050; Q9967

== ENCOUNTER 2021-01-02 11:37 | Emergency (ER) | payer MEDICARE ==
[2021-01-02 11:51] VITALS: BP 156/66; PULSE 70
--- NOTE | 2021-01-02 12:21 | EDM.PDOC ---
ED HPI GENERAL MEDICAL PROBLEM - General Chief Complaint: Lower Extremity Injury/Pain Stated Complaint: RIGHT FOOT ANKLE SWOLLEN/PAIN Time Seen by Provider: 01/02/21 12:19 Source of Information: Reports: Patient History Limitations: Reports: No Limitations - History of Present Illness INITIAL COMMENTS - FREE TEXT/NARRATIVE: pt went to bed and he had no pain in the foot. When he got up he had alot of swelling in the foot and it was very uncomfortable. Onset: Today, Other ( started last nite) Duration: Hour(s): Location: Reports: Lower Extremity, Right Associated Symptoms: Reports: No Other Symptoms Right Foot Pain Score (Numeric/FACES): 9 - Related Data Allergies Allergy/AdvReac Type Severity Reaction Status Date / Time metronidazole [From Flagyl] Allergy Intermediate Hives Verified 01/02/21 11:57 Metronidazole HCl Allergy Intermediate Hives Verified 01/02/21 11:57 [From Flagyl] Home Meds: Home Meds Albuterol [Proair HFA] 2 inh INH Q4H PRN 10/01/13 [History] Propranolol [Inderal] 20 mg PO BID 10/01/13 [History] Multivitamin [Multi-Vitamin Daily] 1 tab PO DAILY 06/06/14 [History] Tamsulosin [Flomax] 0.4 mg PO DAILY 04/15/19 [History] Finasteride 5 mg PO DAILY 01/13/20 [History] Furosemide [Lasix] 20 mg PO DAILY 01/13/20 [History] Magnesium Oxide 400 mg PO DAILY 01/13/20 [History] Nystatin 1 dose TOP TID 01/13/20 [History] Pantoprazole Sodium [Protonix] 40 mg PO DAILY 01/13/20 [History] Theophylline [Brian-24] 300 mg PO DAILY 01/13/20 [History] Thiamine [Vitamin B-1] 1 tab PO DAILY 01/13/20 [History] Fluticasone/Umeclidin/Vilanter [Trelegy Ellipta 200-62.5-25] 1 puff INH BID 01/02/21 [History] Past Medical History HEENT History: Reports: Cataract, Impaired Vision Other HEENT History: wears glasses Cardiovascular History: Reports: High Cholesterol, Hypertension Respiratory History: Reports: COPD Gastrointestinal History: Reports: Colon Polyp, Jaundice Genitourinary History: Reports: BPH Psychiatric History: Reports: Addiction Dermatologic History: Reports: Psoriasis - Infectious Disease History Infectious Disease History: Reports: Chicken Pox, Measles, Mumps, Rubella - Past Surgical History HEENT Surgical History: Reports: Cataract Surgery Cardiovascular Surgical History: Reports: None Respiratory Surgical History: Reports: None GI Surgical History: Reports: Cholecystectomy, Colonoscopy, Polypectomy, Other (See Below) Other GI Surgeries/Procedures: liver biopsy December 2020 Male Surgical History: Reports: None Dermatological Surgical History: Reports: Skin Biopsy Social & Family History - Family History Family Medical History: No Pertinent Family History - Tobacco Use Tobacco Use Status *Q: Current Every Day Tobacco User Years of Tobacco use: 60 Packs/Tins Daily: 1 Used Tobacco, but Quit: No Second Hand Smoke Exposure: Yes - Caffeine Use Caffeine Use: Reports: Coffee, Tea - Alcohol Use Days Per Week of Alcohol Use: 7 Number of Drinks Per Day: 2 Total Drinks Per Week: 14 - Recreational Drug Use Recreational Drug Use: No Review of Systems - Review of Systems Review Of Systems: See Below Eyes: Reports: No Symptoms Ears: Reports: No Symptoms Nose: Reports: No Symptoms Mouth/Throat: Reports: No Symptoms Respiratory: Reports: No Symptoms Cardiovascular: Reports: No Symptoms GI/Abdominal: Reports: No Symptoms Genitourinary: Reports: No Symptoms Musculoskeletal: Reports: Other ( foot pain) Skin: Reports: No Symptoms ED EXAM, GENERAL - Physical Exam Exam: See Below Free Text/Narrative:: pt arrived with a swollen red foot. Exam Limited By: No Limitations General Appearance: Alert, Anxious Extremities: No Pedal Edema, Increased Warmth, Other (pt developed a swollen rt foot without injury. This is painful and he is having difficulty walking. There is considerable redness on the inner aspect of the foot. xray reveals some degenerative changes but not acute finding. ) Neurological: Alert, Oriented, Normal Cognition Course - Vital Signs Last Recorded V/S: Last Vital Signs Temp 36.3 C 01/02/21 12:09 Pulse 70 01/02/21 12:09 Resp 16 01/02/21 12:09 BP 156/66 H 01/02/21 12:09 Pulse Ox 99 01/02/21 12:09 - Orders/Labs/Meds Labs: Laboratory Tests 01/02/21 01/02/21 01/02/21 Range/Units 12:22 12:22 12:22 WBC 7.6 (4.5-11.0) K/uL RBC 3.37 L (4.30-5.90) M/uL Hgb 12.0 (12.0-15.0) g/dL Hct 35.4 L (40.0-54.0) % MCV 105 H (80-98) fL MCH 36 H (27-31) pg MCHC 34 (32-36) % Plt Count 176 (150-400) K/uL Neut % (Auto) 69 H (36-66) % Lymph % (Auto) 15 L (24-44) % [place] % (Auto) 14 H (2-6) % Eos % (Auto) 2 (2-4) % Baso % (Auto) 0 (0-1) % Uric Acid 10.8 H (3.5-7.2) mg/dL C-Reactive Protein 11.00 H (0.0-0.3) mg/dL Meds: Medications Discontinued Medications Generic Name Dose Route Start Last Admin Trade Name Freq PRN Reason Stop Dose Admin Hydrocodone Bitart/Acetaminophen 1 tab 01/02/21 13:46 01/02/21 13:58 Acetaminophen/Hydrocodone 325-5 Mg Tab PO 01/02/21 13:47 1 tab ONETIME ONE Administration Triamcinolone Acetonide 60 mg 01/02/21 13:45 01/02/21 13:57 Triamcinolone Acetonide 40 Mg/Ml 1 Ml Sdv IM 01/02/21 13:46 60 mg ASDIRECTED ONE Administration - Re-Assessments/Exams Free Text/Narrative Re-Assessment/Exam: 01/02/21 13:54 neg xry, uric acid is very elevated. crp is high. Pt was given kenalog 60mg im. Pt had a normal wbc. 01/03/21 19:33 Departure - Departure Time of Disposition: 13:47 Disposition: Home, Self-Care 01 Condition: Fair Clinical Impression: Gout - Discharge Information Instructions: Low-Purine Eating Plan Referrals: Robert Olsen MD [Primary Care Provider] - Forms: ED Department Discharge Care Plan Goals: when sitting elevat the foot, use a walker for the next few days, cool pack the foot. indocin 50 mg tid for the next 5 days or until pain is better, norco 5/325 q6h as needed for pain # 6. appt with regular Dr in 4-5 days. Sepsis Event Note (ED) - Evaluation Sepsis Screening Result: No Definite Risk
[2021-01-02] MEDS ORDERED: Triamcinolone Acetonide 40 MG/ML 1 ML SDV IM ONE (13:45)
[2021-01-02] MEDS ORDERED: Acetaminophen/HYDROcodone 325-5 MG Tab PO ONE (13:46)
--- NOTE | 2021-01-03 11:35 | CR ---
FOOT RIGHT 3 views CLINICAL HISTORY:Pain and swelling FINDINGS:No fracture or osseous lesion is identified. 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
== END 2021-01-02 13:45 | disposition home or self-care (01) ==
LOC: JP.ED 11:37
DX: M10.9 Gout, unspecified (principal); J44.9 Chronic obstructive pulmonary disease, unspecified; E78.00 Pure hypercholesterolemia, unspecified; I10 Essential (primary) hypertension; Z88.1 Allergy status to other antibiotic agents; Z79.899 Other long term (current) drug therapy; Z72.0 Tobacco use
CPT/HCPCS: 36415; 73630-26-RT; 73630-RT; 84550; 85025; 86140; 96372; 99283; A9270-GY; J3301

== ENCOUNTER 2021-10-21 16:54 | Emergency (ER) | payer MEDICARE ==
[2021-10-21 18:52] VITALS: BP 147/82; PULSE 81
== END 2021-10-21 18:40 | disposition home or self-care (01) ==
LOC: JP.ED 16:54
DX: C22.0 Liver cell carcinoma (principal); I10 Essential (primary) hypertension; E78.00 Pure hypercholesterolemia, unspecified; J44.9 Chronic obstructive pulmonary disease, unspecified; Z87.891 Personal history of nicotine dependence; Z88.8 Allergy status to other drugs, medicaments and biological substances; Z79.899 Other long term (current) drug therapy
CPT/HCPCS: 99283

== ENCOUNTER 2021-10-28 15:33 | Emergency (ER) | payer MEDICARE ==
[2021-10-28 16:27] VITALS: BP 122/74; PULSE 76
== END 2021-10-28 17:33 | disposition home or self-care (01) ==
LOC: JP.ED 15:33
DX: K70.10 Alcoholic hepatitis without ascites (principal); K70.30 Alcoholic cirrhosis of liver without ascites; I10 Essential (primary) hypertension; J44.9 Chronic obstructive pulmonary disease, unspecified; Z88.8 Allergy status to other drugs, medicaments and biological substances
CPT/HCPCS: 99282; 99284